=== PATIENT | female | born 1955 | race Caucasian/White ===

== ENCOUNTER 2019-01-17 12:55 | Inpatient (IN) | payer MEDICARE, MEDICAID ==
[~2019-01-17] VITALS: Ht 165.1 cm; Wt 48.1 kg
[2019-01-17] MEDS ORDERED: ROPI2 PO (13:04)
[2019-01-17 14:04] LABS: BASOPHILS % (AUTO) 0.8 % (0.0-2.0); EOSINOPHILS % (AUTO) 0.1 % (1.0-6.0); HEMATOCRIT 40.9 % (36-46); HEMOGLOBIN 13.4 g/dL (12.0-16.0); LYMPHOCYTES # (AUTO) 1.6 K/uL (1.0-4.8); LYMPHOCYTES % (AUTO) 16.5 % (22.0-44.0); MEAN CORPUSCULAR HEMOGLOBIN 28.5 pg (26.0-34.0); MEAN CORPUSCULAR HGB CONC 32.7 G/dL (31.0-37.0); MEAN CORPUSCULAR VOLUME 87 fL (80-100); MONOCYTES # (AUTO) 0.6 K/uL (0.1-1.0); MONOCYTES % (AUTO) 6.2 % (2.0-9.0); NEUTROPHILS # (AUTO) 7.5 K/uL (1.8-7.7); NEUTROPHILS % (AUTO) 76.4 % (40.0-70.0); PLATELET COUNT (AUTO) 260 K/uL (150-450); RED BLOOD CELL COUNT(AUTO) 4.69 MIL/uL (4.00-5.20); RED CELL DISTRIBUTION WIDTH 13.8 % (11.5-14.5)
[2019-01-17 14:21] LABS: ANION GAP 9 mmol/L (8-16); CALCIUM, TOTAL 8.7 mg/dL (8.8-10.5); CARBON DIOXIDE 26 mmol/L (22-29); CHLORIDE 104 mmol/L (98-107); CREATININE 0.83 mg/dL (0.60-1.30); GLOMERULAR FILTR. RATE CALC > 60 mL/min (>60); GLUCOSE,RANDOM 108 mg/dL (70-110); POTASSIUM 3.6 mmol/L (3.5-5.1); SODIUM SERUM 139 mmol/L (136-145); UREA NITROGEN, BLOOD 25 mg/dL (7-18)
[2019-01-17 14:27] LABS: ALANINE AMINOTRANSFERASE 22 U/L (12-78); ALBUMIN 3.2 g/dL (3.4-5.0); ALKALINE PHOSPHATASE 79 U/L (46-116); ASPARTATE AMINOTRANSFERASE 16 U/L (15-37); BILIRUBIN,TOTAL 0.2 mg/dL (0.1-1.0); TOTAL PROTEIN, SERUM 6.6 g/dL (6.4-8.2)
[2019-01-17] MEDS ORDERED: LORazepam 2 MG TABLET PO ONE (14:45)
[2019-01-17 15:01] LABS: AMPHET/METH SCREEN,URINE NEGATIVE (NEGATIVE); BARBITURATE SCREEN, URINE NEGATIVE (NEGATIVE); BENZODIAZEPINES SCREEN,URINE NEGATIVE (NEGATIVE); CANNABINOID SCREEN,URINE POSITIVE (NEGATIVE); COCAINE SCREEN,URINE NEGATIVE (NEGATIVE); METHADONE SCREEN, URINE NEGATIVE (NEGATIVE); OPIATE SCREEN,URINE NEGATIVE (NEGATIVE); PHENCYCLIDINE SCREEN,URINE NEGATIVE (NEGATIVE)
[2019-01-17] MEDS ORDERED: HALOPERIDOL 5 MG TABLET PO PRN (15:30)
[2019-01-17] MEDS ORDERED: ACETAMINOPHEN 325 MG TABLET PO PRN (15:30)
[2019-01-17] MEDS ORDERED: IBUPROFEN 400 MG TABLET PO PRN (15:30)
[2019-01-17 19:42] VITALS: BP 121/75
[2019-01-17] MEDS ORDERED: MAG HYDROX/AL HYDROX/SIMETH ES 30 ML SUSPENSION UDCUP PO PRN (20:15)
[2019-01-17] MEDS ORDERED: MAGNESIUM HYDROXIDE SUSPENSION 30 ML UDCUP PO PRN (20:15)
[2019-01-17] MEDS ORDERED: DOCUSATE SODIUM 100 MG CAPSULE PO PRN (20:15)
[2019-01-17] MEDS ORDERED: LOPERAMIDE HCL 2 MG CAPSULE PO PRN (20:15)
[2019-01-17] MEDS ORDERED: PETROLATUM,WHITE 28 GM JELLY TP PRN (20:15)
[2019-01-17] MEDS: ZOLPIDEM TARTRATE 10 MG TABLET PO PRN (22:11)
[2019-01-17] MEDS: MIRTAZAPINE 15 MG TABLET PO SCH (22:11)
[2019-01-18 06:22] VITALS: BP 133/62
[2019-01-18 08:11] LABS: BASOPHILS % (AUTO) 0.4 % (0.0-2.0); EOSINOPHILS % (AUTO) 1.6 % (1.0-6.0); HEMATOCRIT 41.2 % (36-46); HEMOGLOBIN 13.3 g/dL (12.0-16.0); LYMPHOCYTES % (AUTO) 20.9 % (22.0-44.0); MEAN CORPUSCULAR HEMOGLOBIN 28.3 pg (26.0-34.0); MEAN CORPUSCULAR HGB CONC 32.2 G/dL (31.0-37.0); MEAN CORPUSCULAR VOLUME 88 fL (80-100); MONOCYTES # (AUTO) 0.7 K/uL (0.1-1.0); MONOCYTES % (AUTO) 6.9 % (2.0-9.0); NEUTROPHILS # (AUTO) 6.7 K/uL (1.8-7.7); NEUTROPHILS % (AUTO) 70.2 % (40.0-70.0); PLATELET COUNT (AUTO) 252 K/uL (150-450); RED BLOOD CELL COUNT(AUTO) 4.69 MIL/uL (4.00-5.20); RED CELL DISTRIBUTION WIDTH 13.6 % (11.5-14.5)
[2019-01-18 08:16] LABS: HEMOGLOBIN A1C 5.8 % (4.5-6.2)
[2019-01-18 08:36] VITALS: BP 113/66
[2019-01-18] MEDS: DIVALPROEX SODIUM 500 MG DR TABLET PO SCH ×2 (08:37→16:32)
[2019-01-18 08:49] LABS: ALANINE AMINOTRANSFERASE 20 U/L (12-78); ALKALINE PHOSPHATASE 71 U/L (46-116); ANION GAP 8 mmol/L (8-16); ASPARTATE AMINOTRANSFERASE 17 U/L (15-37); BILIRUBIN,TOTAL 0.2 mg/dL (0.1-1.0); CALCIUM, TOTAL 8.7 mg/dL (8.8-10.5); CARBON DIOXIDE 28 mmol/L (22-29); CHLORIDE 106 mmol/L (98-107); CHOL/HDL RATIO 6.4 (3.9-5.7); CHOLESTEROL 191 mg/dL (131-200); CREATININE 0.77 mg/dL (0.60-1.30); GLOMERULAR FILTR. RATE CALC > 60 mL/min (>60); GLUCOSE,RANDOM 87 mg/dL (70-110); HDL CHOLESTEROL 30 mg/dL (40-60); LDL CHOL (CALC.) 143 mg/dL (0-130); POTASSIUM 3.7 mmol/L (3.5-5.1); SODIUM SERUM 142 mmol/L (136-145); THYROID STIMULATING HORMONE 2.95 uIU/mL (0.36-3.74); TOTAL PROTEIN, SERUM 6.3 g/dL (6.4-8.2); TRIGLYCERIDES 89 mg/dL (15-150); UREA NITROGEN, BLOOD 25 mg/dL (7-18)
[2019-01-18] MEDS ORDERED: MAGNESIUM HYDROXIDE SUSPENSION 30 ML UDCUP PO PRN (11:15)
[2019-01-18] MEDS ORDERED: ALBUTEROL SULFATE HFA 90 MCG/PUFF 8 GM INHALER IH PRN (11:15)
[2019-01-18] MEDS ORDERED: NICOTINE 14 MG/24 HOUR PATCH TD PRN (11:15)
[2019-01-18] MEDS ORDERED: CloNIDine HCL 0.1 MG TABLET PO PRN (11:15)
[2019-01-18] MEDS ORDERED: GuaiFENesin/D-METHORPHAN [SUGAR-FREE] 200-20MG/10 ML SYRUP UDCUP PO PRN (11:15)
[2019-01-18] MEDS ORDERED: DOCUSATE SODIUM 100 MG CAPSULE PO PRN (11:15)
[2019-01-18] MEDS ORDERED: LOPERAMIDE HCL 2 MG CAPSULE PO PRN (11:15)
[2019-01-18] MEDS ORDERED: PETROLATUM,WHITE 28 GM JELLY TP PRN (11:15)
[2019-01-18] MEDS ORDERED: ONDANSETRON HCL 4 MG TABLET PO PRN (11:15)
[2019-01-18] MEDS: LORazepam 2 MG TABLET PO PRN (12:07)
[2019-01-18 12:08] VITALS: BP 110/70
[2019-01-18] MEDS: IBUPROFEN 400 MG TABLET PO PRN (12:08)
[2019-01-18] MEDS: MAG HYDROX/AL HYDROX/SIMETH ES 30 ML SUSPENSION UDCUP PO PRN (19:56)
[2019-01-18] MEDS: MIRTAZAPINE 15 MG TABLET PO SCH (20:22)
[2019-01-18 20:39] VITALS: BP 110/64
[2019-01-19 02:42] VITALS: BP 113/78
[2019-01-19] MEDS: ZOLPIDEM TARTRATE 10 MG TABLET PO PRN (02:51)
[2019-01-19 08:20] VITALS: BP 121/73
[2019-01-19] MEDS: LORazepam 2 MG TABLET PO PRN ×3 (08:28→17:12)
[2019-01-19] MEDS: DIVALPROEX SODIUM 500 MG DR TABLET PO SCH ×2 (08:28→16:17)
[2019-01-19 08:29] VITALS: BP 116/72
[2019-01-19] MEDS: IBUPROFEN 400 MG TABLET PO PRN (08:29)
[2019-01-19 16:27] VITALS: BP 139/83
[2019-01-19] MEDS: MIRTAZAPINE 15 MG TABLET PO SCH (20:28)
[2019-01-20 06:37] VITALS: BP 125/76
[2019-01-20] MEDS: DIVALPROEX SODIUM 500 MG DR TABLET PO SCH ×2 (08:38→16:19)
[2019-01-20 09:11] VITALS: BP 117/66
[2019-01-20] MEDS: LORazepam 2 MG TABLET PO PRN ×2 (12:41→17:41)
[2019-01-20 16:25] VITALS: BP 105/69
[2019-01-20] MEDS: MIRTAZAPINE 15 MG TABLET PO SCH (20:20)
[2019-01-21 05:49] VITALS: BP 129/69
[2019-01-21 08:32] VITALS: BP 126/81
[2019-01-21] MEDS: DIVALPROEX SODIUM 500 MG DR TABLET PO SCH ×2 (08:42→16:08)
[2019-01-21] MEDS: LORazepam 2 MG TABLET PO PRN (08:42)
[2019-01-21 16:08] VITALS: BP 112/72
[2019-01-21] MEDS: IBUPROFEN 400 MG TABLET PO PRN (16:08)
[2019-01-21] MEDS: MIRTAZAPINE 15 MG TABLET PO SCH (20:11)
[2019-01-21] MEDS: ZOLPIDEM TARTRATE 10 MG TABLET PO PRN (22:33)
[2019-01-22 00:19] VITALS: BP 116/70
[2019-01-22] MEDS: DIVALPROEX SODIUM 500 MG DR TABLET PO SCH ×2 (08:09→16:18)
[2019-01-22 09:05] VITALS: BP 121/70
[2019-01-22] MEDS: LORazepam 2 MG TABLET PO PRN (10:52)
[2019-01-22 16:08] VITALS: BP 121/73
[2019-01-22] MEDS: MIRTAZAPINE 15 MG TABLET PO SCH (19:11)
[2019-01-23 01:46] VITALS: BP 123/77
[2019-01-23 08:22] VITALS: BP 135/94
[2019-01-23] MEDS: DIVALPROEX SODIUM 500 MG DR TABLET PO SCH ×2 (08:52→16:19)
[2019-01-23 10:17] VITALS: BP 137/87
[2019-01-23] MEDS: IBUPROFEN 400 MG TABLET PO PRN (10:24)
[2019-01-23] MEDS: ACETAMINOPHEN 325 MG TABLET PO PRN (14:03)
[2019-01-23 16:21] VITALS: BP 134/81
[2019-01-23] MEDS: MIRTAZAPINE 15 MG TABLET PO SCH (20:19)
[2019-01-24 06:30] VITALS: BP 131/76
[2019-01-24] MEDS: ACETAMINOPHEN 325 MG TABLET PO PRN (07:08)
[2019-01-24] MEDS: DIVALPROEX SODIUM 500 MG DR TABLET PO SCH ×2 (08:23→20:29)
[2019-01-24 08:50] VITALS: BP 132/75
[2019-01-24 10:20] VITALS: BP 129/82
[2019-01-24] MEDS: IBUPROFEN 400 MG TABLET PO PRN ×2 (10:27→16:38)
[2019-01-24 16:18] VITALS: BP 139/84
[2019-01-24 16:38] VITALS: BP 134/82
[2019-01-24] MEDS: MIRTAZAPINE 15 MG TABLET PO SCH (20:28)
[2019-01-25 01:33] VITALS: BP 122/78
[2019-01-25 08:10] VITALS: BP 139/94
[2019-01-25] MEDS: DIVALPROEX SODIUM 250 MG DR TABLET PO SCH (08:37)
[2019-01-25] MEDS: ACETAMINOPHEN 325 MG TABLET PO PRN (13:06)
[2019-01-25 16:12] VITALS: BP 118/86
[2019-01-25] MEDS: MAG HYDROX/AL HYDROX/SIMETH ES 30 ML SUSPENSION UDCUP PO PRN (17:41)
[2019-01-25] MEDS: DIVALPROEX SODIUM 500 MG DR TABLET PO SCH (20:09)
[2019-01-25] MEDS: MIRTAZAPINE 15 MG TABLET PO SCH (20:09)
[2019-01-25] MEDS ORDERED: DIVA250T4 PO (22:47)
[2019-01-25] MEDS ORDERED: MIRT30 PO (22:47)
[2019-01-25] MEDS ORDERED: DIVA-78 PO (22:47)
[2019-01-26 03:50] VITALS: BP 121/87
[2019-01-26] MEDS: LORazepam 2 MG TABLET PO PRN (04:07)
[2019-01-26] MEDS ORDERED: ROPI2 PO (07:48)
[2019-01-26] MEDS: DIVALPROEX SODIUM 250 MG DR TABLET PO SCH (08:12)
[2019-01-26 08:14] VITALS: BP 113/83
== END 2019-01-26 10:20 | disposition home or self-care (01) | DRG 885 ==
LOC: EMS 12:56 → B2S 16:50
PROVIDERS: ADMIT Psychiatry & Neurology Psychiatry; ATTEND Psychiatry & Neurology Psychiatry
DX: F25.9 Schizoaffective disorder, unspecified (principal); R45.851 Suicidal ideations; E46 Unspecified protein-calorie malnutrition; Z68.1 Body mass index [BMI] 19.9 or less, adult; F12.90 Cannabis use, unspecified, uncomplicated; F32.9 Major depressive disorder, single episode, unspecified; G25.81 Restless legs syndrome; F41.9 Anxiety disorder, unspecified; E78.5 Hyperlipidemia, unspecified; K21.9 Gastro-esophageal reflux disease without esophagitis; F19.10 Other psychoactive substance abuse, uncomplicated; Z71.51 Drug abuse counseling and surveillance of drug abuser
CPT/HCPCS: 83036; 84443; G0480; Q0162